=== PATIENT | female | born 1980 ===

== ENCOUNTER 2017-02-11 20:36 | Emergency (ER) | payer OTHER ==
[2017-02-11 20:55] VITALS: BP 121/73; PULSE 84; RESP 18; TEMP 98.3; O2SAT 99
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
--- NOTE | 2017-02-12 12:02 | RAD ---
PROCEDURE: Cervical Spine Radiographs. HISTORY: Pain. COMPARISON: None. FINDINGS: BONES: No fracture. Normal alignment maintained. Reversal of normal lordotic curvature indicates possible muscular spasm. Atlantoaxial articulation and odontoid process appear intact. DISC SPACES: Normal. SOFT TISSUES: Normal. No prevertebral soft tissue swelling. OTHER FINDINGS: None. IMPRESSION: No fracture. Possible muscular spasm. Otherwise unremarkable.
== END 2017-02-11 22:49 | disposition home or self-care (01) ==
LOC: H.ER 20:36
DX: S16.1XXA Strain of muscle, fascia and tendon at neck level, initial encounter (principal); V43.52XA Car driver injured in collision with other type car in traffic accident, initial encounter

== ENCOUNTER 2017-11-07 11:18 | Emergency (ER) | payer OTHER ==
[2017-11-07 11:33] VITALS: BP 108/63; PULSE 70; RESP 16; TEMP 97.8; O2SAT 100
--- NOTE | 2017-11-07 12:39 | ED PDOC ---
HPI: Female Pain Time Seen by Provider: 11/07/17 11:58 Chief Complaint (Nursing): Abdominal Pain Chief Complaint (Provider): with vaginal bleeding History Per: Patient Additional Complaint(s): 37-year-old female currently 5 weeks presents with vaginal bleeding ongoing for 4 days. Patient states 4 days ago she passed a large clot and since then has had persistent bleeding. Patient has not started care for this as of yet. She has history of one miscarriage in the past but denies history of ectopic . Patient denies any dysuria, fever or chills , no nausea, vomiting or diarrhea. Patient is (2 miscarriages). Past Medical History Reviewed: Historical Data, Nursing Documentation, Vital Signs Vital Signs: Last Vital Signs Temp 97.8 F 11/07/17 11:29 Pulse 70 11/07/17 11:29 Resp 16 11/07/17 11:29 BP 108/63 11/07/17 11:29 Pulse Ox 100 11/07/17 11:29 - Medical History PMH: No Chronic Diseases - Surgical History Surgical History: (x 2) - Family History Family History: States: No Known Family Hx - Living Arrangements Living Arrangements: With Family - Social History Current smoker - smoking cessation education provided: No Alcohol: None Drugs: Denies - Home Medications Home Medications: Ambulatory Orders Medication Instructions Recorded Cyclobenzaprine [Cyclobenzaprine 10 mg PO TID PRN #15 tab 02/11/17 HCl] Ibuprofen [Motrin Tab] 800 mg PO Q8 PRN #20 tab 02/11/17 - Allergies Allergies/Adverse Reactions: Allergies Allergy/AdvReac Type Severity Reaction Status Date / Time No Known Allergies Allergy Verified 02/11/17 20:53 Review of Systems ROS Statement: Except As Marked, All Systems Reviewed And Found Negative Constitutional: Negative for: Fever Genitourinary Female: Positive for: Vaginal Bleeding, Pelvic Pain Physical Exam - Reviewed Nursing Documentation Reviewed: Yes Vital Signs Reviewed: Yes - Physical Exam Appears: Positive for: Well, Non-toxic, No Acute Distress Skin: Negative for: Rash Eye Exam: Positive for: Normal appearance Cardiovascular/Chest: Positive for: Regular Rate, Rhythm Respiratory: Positive for: Normal Breath Sounds Gastrointestinal/Abdominal: Positive for: Soft. Negative for: Tenderness, Distended, Guarding Extremity: Positive for: Normal ROM Neurologic/Psych: Positive for: Alert, Oriented - Laboratory Results Result Diagrams: 11/07/17 13:15 11/07/17 13:15 - ECG O2 Sat by Pulse Oximetry: 100 Pulse Ox Interpretation: Normal - Other Rad OB US X-Ray: Read By Radiologist X-Ray Interpretation: see below Medical Decision Making Medical Decision Makin -year-old female with vaginal bleeding. Plan: CBC CMP Urine dip Beta OB US US: IMPRESSION: No intrauterine gestation. Findings may represent early normal /abnormal , ectopic or completed (if dates by LMP are accurate). Close clinical follow-up with serial pelvic sonography and serum beta HCG levels is recommended. Case was d/w Dr. Pearson, OB inventory control planner who states to have patient return to ED in 2 days for repeat beta. Disposition - Clinical Impression Clinical Impression: Missed - Patient ED Disposition Is Patient to be Admitted: No Counseled Patient/Family Regarding: Studies Performed, Diagnosis, Need For Followup - Disposition Referrals: [facility] [Outside] Disposition: Routine/Home Disposition Time: 16:22 Condition: STABLE Additional Instructions: Return to emergency Department in 2 days for repeat blood work. Tylenol or Advil for pain as needed. Instructions: Spontaneous Miscarriage (ED) Forms: [employer] (Persian) Print Language: [place] Results - Lab Results Lab Results: 11/07/17 11/07/17 11/07/17 13:15 13:15 13:15 WBC 9.3 RBC 4.28 Hgb 12.3 Hct 37.5 MCV 87.7 MCH 28.8 MCHC 32.8 L RDW 14.7 H Plt Count 277 MPV 9.0 Neut % (Auto) 62.3 Lymph % (Auto) 27.9 [place] % (Auto) 5.6 Eos % (Auto) 3.2 Baso % (Auto) 1.0 Neut # 5.8 Lymph # 2.6 [place] # 0.5 Eos # 0.3 Baso # 0.1 Sodium 145 Potassium 3.9 Chloride 105 Carbon Dioxide 28 Anion Gap 16 BUN 14 Creatinine 0.6 L Est GFR ( Amer) > 60 Est GFR (Non-Af Amer) > 60 Random Glucose 91 Calcium 9.6 Total Bilirubin 0.3 AST 22 ALT 55 H Alkaline Phosphatase 68 Total Protein 7.7 Albumin 4.1 Globulin 3.6 Albumin/Globulin Ratio 1.2 Beta HCG, Quant 154.77 Urine Color Urine Clarity Urine pH Ur Specific [place] Urine Protein Urine Glucose (UA) Urine Ketones Urine Blood Urine Nitrate Urine Bilirubin Urine Urobilinogen Ur Leukocyte Esterase Urine RBC (Auto) Urine Microscopic WBC Ur Squamous Epith Cells Amorphous Sediment Blood Type O POSITIVE Antibody Screen Negative BBK History Checked No verified bt 11/07/17 13:09 WBC RBC Hgb Hct MCV MCH MCHC RDW Plt Count MPV Neut % (Auto) Lymph % (Auto) [place] % (Auto) Eos % (Auto) Baso % (Auto) Neut # Lymph # [place] # Eos # Baso # Sodium Potassium Chloride Carbon Dioxide Anion Gap BUN Creatinine Est GFR ( Amer) Est GFR (Non-Af Amer) Random Glucose Calcium Total Bilirubin AST ALT Alkaline Phosphatase Total Protein Albumin Globulin Albumin/Globulin Ratio Beta HCG, Quant Urine Color Yellow Urine Clarity Cloudy Urine pH 7.0 Ur Specific [place] 1.026 Urine Protein 30 Urine Glucose (UA) Neg Urine Ketones Negative Urine Blood Large Urine Nitrate Negative Urine Bilirubin Negative Urine Urobilinogen 0.2-1.0 Ur Leukocyte Esterase Neg Urine RBC (Auto) 646 H Urine Microscopic WBC 1 Ur Squamous Epith Cells 1 Amorphous Sediment Rare H Blood Type Antibody Screen BBK History Checked
[2017-11-07 13:22] LABS: SQUAMOUS EPITHIAL 1 /hpf (0-5); URINE AMORPHOUS SEDIMENT RARE /ul (<OCC); URINE BILIRUBIN NEGATIVE (NEGATIVE); URINE BLOOD LARGE (NEGATIVE); URINE CLARITY CLOUDY (Clear); URINE COLOR YELLOW (YELLOW); URINE GLUCOSE (UA) NEG (Normal); URINE LEUKOCYTE ESTERASE NEG Leu/uL (Negative); URINE NITRATE NEGATIVE (NEGATIVE); URINE PROTEIN 30 mg/dL (NEGATIVE); URINE UROBILINOGEN 0.2-1.0 mg/dL (0.2-1.0)
[2017-11-07 13:24] LABS: BASO # 0.1 K/uL (0.0-0.2); EOS # 0.3 K/uL (0.0-0.7); EOS % 3.2 % (0.0-4.0); HEMOGLOBIN 12.3 g/dL (12.0-16.0); LYMPH # 2.6 K/uL (1.0-4.3); LYMPH % 27.9 % (20.0-40.0); MEAN CELL VOLUME 87.7 fl (81.0-99.0); MEAN CORPUSCULAR HEMOGLOBIN 28.8 pg (27.0-31.0); MEAN CORPUSCULAR HGB CONC 32.8 g/dL (33.0-37.0); MONO # 0.5 K/uL (0.0-0.8); MONO % 5.6 % (0.0-10.0); NEUT # 5.8 K/uL (1.8-7.0); NEUT % 62.3 % (50.0-75.0); NRBC % 0.1 % (0.0-0.0); RBC 4.28 Mil/uL (3.80-5.20); RED CELL DISTRIBUTION WIDTH 14.7 % (11.5-14.5); WHITE BLOOD COUNT 9.3 K/uL (4.8-10.8)
[2017-11-07 13:42] LABS: ALB/GLOB RATIO 1.2 (1.0-2.1); ALBUMIN 4.1 g/dL (3.5-5.0); ALT/SGPT 55 U/L (9-52); AST/SGOT 22 U/L (14-36); BLOOD UREA NITROGEN 14 mg/dl (7-17); CALCIUM 9.6 mg/dL (8.4-10.2); GFR AFRICAN-AMERICAN > 60; GFR NON-AFRICAN AMERICAN > 60
--- NOTE | 2017-11-07 14:32 | US ---
PROCEDURE: OB Pelvic Ultrasound HISTORY: with vaginal bleeding COMPARISON: None available. FINDINGS: UTERUS: Uterus measures 8.0 x 4.5 x 5.5 cm. Anteverted. Normal in size and appearance. No intrauterine gestation. Endometrium measures 12 millimeter. CERVIX: Nabothian cysts. Long and closed. No cervical abnormality seen. RIGHT OVARY: Measures 2.6 x 1.9 x 2.5 cm. No mass lesion. Normal flow. LEFT OVARY: Measures 2.3 x 1.8 x 1.5 cm. No solid mass. Normal flow. FREE FLUID: None. OTHER FINDINGS: None. IMPRESSION: No intrauterine gestation. Findings may represent early normal/abnormal , ectopic or completed (if dates by LMP are accurate). Close clinical follow-up with serial pelvic sonography and serum beta HCG levels is recommended.
== END 2017-11-07 16:46 | disposition home or self-care (01) ==
LOC: H.ER 11:18
DX: O02.1 Missed abortion (principal)

== ENCOUNTER 2017-11-10 10:34 | Emergency (ER) | payer OTHER ==
[2017-11-10 11:07] VITALS: BP 103/65; PULSE 91; RESP 18; TEMP 98.4; O2SAT 98
--- NOTE | 2017-11-10 11:15 | ED PDOC ---
HPI: General Adult Time Seen by Provider: 11/10/17 11:12 Chief Complaint (Nursing): Abnormal Labs Chief Complaint (Provider): reepat beta History Per: Patient Additional Complaint(s): 37-year-old female presents for repeat blood work. Patient was seen on Friday and was diagnosed with missed . She was instructed to return today for repeat blood work. Patient denies fever or chills and she states that abdominal cramping and bleeding have subsided. Past Medical History Reviewed: Historical Data, Nursing Documentation, Vital Signs Vital Signs: Last Vital Signs Temp 98.4 F 11/10/17 11:05 Pulse 91 H 11/10/17 11:05 Resp 18 11/10/17 11:05 BP 103/65 11/10/17 11:05 Pulse Ox 98 11/10/17 11:33 - Medical History PMH: No Chronic Diseases - Surgical History Surgical History: (x 2) - Family History Family History: States: No Known Family Hx - Living Arrangements Living Arrangements: With Family - Social History Current smoker - smoking cessation education provided: No Alcohol: None Drugs: Denies - Home Medications Home Medications: Ambulatory Orders Medication Instructions Recorded Cyclobenzaprine [Cyclobenzaprine 10 mg PO TID PRN #15 tab 02/11/17 HCl] Ibuprofen [Motrin Tab] 800 mg PO Q8 PRN #20 tab 02/11/17 - Allergies Allergies/Adverse Reactions: Allergies Allergy/AdvReac Type Severity Reaction Status Date / Time No Known Allergies Allergy Verified 02/11/17 20:53 Review of Systems ROS Statement: Except As Marked, All Systems Reviewed And Found Negative Genitourinary Female: Positive for: Other (needs beta) Physical Exam - Reviewed Nursing Documentation Reviewed: Yes Vital Signs Reviewed: Yes - Physical Exam Appears: Positive for: Well, Non-toxic, No Acute Distress Skin: Negative for: Rash Eye Exam: Positive for: Normal appearance Cardiovascular/Chest: Positive for: Regular Rate, Rhythm Respiratory: Positive for: Normal Breath Sounds Gastrointestinal/Abdominal: Positive for: Soft. Negative for: Tenderness Extremity: Positive for: Normal ROM Neurologic/Psych: Positive for: Alert, Oriented - ECG O2 Sat by Pulse Oximetry: 98 Pulse Ox Interpretation: Normal Medical Decision Making Medical Decision Makin37 year old here for repeat labs Plan: Beta quant Beta Quant is 45. This number is decreased from previous beta which was 154 this past Friday. This is consistent with recent missed . Patient was referred to [facility] clinic for follow up. Disposition - Clinical Impression Clinical Impression: Missed - Patient ED Disposition Is Patient to be Admitted: No Counseled Patient/Family Regarding: Diagnosis, Need For Followup - Disposition [facility] Disposition: Routine/Home Disposition Time: 13:17 Condition: STABLE Additional Instructions: Follow-up as needed with [facility]. Instructions: Spontaneous Miscarriage (ED) Forms: [employer] (Gabonese)
== END 2017-11-10 13:39 | disposition home or self-care (01) ==
LOC: H.ER 10:34
DX: O02.1 Missed abortion (principal)